=== PATIENT | male | born 1995 | race African-American/Black ===

== ENCOUNTER 2018-05-27 18:54 | Emergency (ER) | payer OTHER ==
[~2018-05-27] VITALS: Ht 170.2 cm; Wt 95.5 kg
[2018-05-27] MEDS ORDERED: ASPIRIN 81 MG CHEW TABLET PO ONE (19:45)
[2018-05-27 19:54] LABS: VENOUS BASE EXCESS 0.4 (-2.0-2.0); VENOUS HCO3 27.7 MEQ/L (23.0-27.0); VENOUS O2 SATURATION 73.4 % (60.0-80.0); VENOUS PARTIAL PRESSURE CO2 54.4 mmHg (38.0-50.0); VENOUS PARTIAL PRESSURE O2 40.6 mmHg (30.0-50.0); VENOUS PH 7.324 UNITS (7.330-7.430); VENOUS STANDARD HCO3 24.2 MEQ/L; VENOUS TOTAL CO2 29.3 MEQ/L (24.0-28.0)
[2018-05-27 19:58] LABS: BASO % 0.2 % (0.0-1.0); EOS # 0.1 10^3/uL (0.0-0.50); EOS % 1.9 % (0.0-3.0); HEMATOCRIT 46.3 % (42.0-52.0); HEMOGLOBIN 15.6 g/dl (13.5-17.5); LYMPH # 2.5 10^3/uL (1.5-6.5); MEAN CORPUSCULAR HEMOGLOBIN 29.2 pg (27.0-33.0); MEAN CORPUSCULAR HGB CONC 33.7 g/dl (32.0-36.5); MEAN CORPUSCULAR VOLUME 86.5 fl (80.0-96.0); MONO # 0.3 10^3/uL (0.0-0.8); MONO % 6.5 % (0.0-5.0); NEUTROPHILS # 1.8 10^3/uL (1.8-7.7); NEUTROPHILS % 38.2 % (36.0-66.0); PLATELET COUNT, AUTOMATED 269 10^3/uL (150-450); RED BLOOD COUNT 5.35 10^6/uL (4.30-6.10); WHITE BLOOD COUNT 4.8 10^3/uL (4.0-10.0)
--- NOTE | 2018-05-27 19:58 | REP ---
Clinical: Chest pain . Comparison: None . Technique: PA and lateral. Findings: The mediastinum and cardiac silhouette are normal. The lung weber without acute focal consolidation, effusion, or pneumothorax. The skeletal structures are intact and normal. Impression: 1. No focal consolidation. Electronically Signed by Collin Quintero MD 05/27/2018 07:50 P
[2018-05-27 20:59] LABS: ALBUMIN 3.7 GM/DL (3.2-5.2); ALT/SGPT 40 U/L (12-78); BILIRUBIN,DIRECT < 0.1 MG/DL (0.0-0.2); BILIRUBIN,TOTAL 0.4 MG/DL (0.2-1.0); BLOOD UREA NITROGEN 8 MG/DL (7-18); CALCIUM LEVEL 8.2 MG/DL (8.5-10.1); CARBON DIOXIDE LEVEL 28 MEQ/L (21-32); CHLORIDE LEVEL 106 MEQ/L (98-107); CPK CREATINE PHOSPHOKINASE 189 U/L (39-308); CREATININE FOR GFR 1.16 MG/DL (0.70-1.30); GLOMERULAR FILTRATION RATE > 60.0 (>60); GLUCOSE, FASTING 119 MG/DL (70-100); LIPASE 243 U/L (73-393); MB/CK RELATIVE INDEX 0.58 (< OR =4); NT-PRO BNP < 5 PG/ML (<125); SODIUM LEVEL 142 MEQ/L (136-145); TOTAL PROTEIN 7.2 GM/DL (6.4-8.2); TROPONIN I < 0.02 NG/ML (< 0.10)
[2018-05-27 21:45] VITALS: BP 137/73
--- NOTE | 2018-05-28 14:55 | ECGEPIP ---
Stationary ECG Study [facility] - ED Test Date: 2018-05-27 Pat Name: JUSTINE PALMER Department: Room: - Gender: M [employer]: : 1995 Requested By: MIKIE TELLEZ Order Number: [id number] Reading MD: Sandy Londono Measurements Intervals [place] Rate: 91 P: -23 MN: 139 QRS: 73 QRSD: 110 T: -54 QT: 351 QTc: 432 Interpretive Statements SINUS RHYTHM ST DEVIATION AND MODERATE T-WAVE ABNORMALITY, CONSIDER ISCHEMIA NO PRIOR FOR COMPARISON Electronically Signed On 05-28-2018 14:55:01 EST by Sandy Londono
== END 2018-05-27 22:02 | disposition home or self-care (01) ==
LOC: M ED 18:54
DX: R07.89 Other chest pain (principal); R06.02 Shortness of breath; F17.210 Nicotine dependence, cigarettes, uncomplicated

== ENCOUNTER 2019-05-16 20:56 | Emergency (ER) | payer OTHER ==
[~2019-05-16] VITALS: Ht 170.2 cm; Wt 102.7 kg
[2019-05-16] MEDS ORDERED: IBUPROFEN 800 MG TAB PO ONE (22:00)
[2019-05-16 23:56] VITALS: BP 136/70
--- NOTE | 2019-05-17 08:48 | REP ---
Left knee series: Five views. History: Left knee pain. Findings: Five views of the left knee demonstrate some clothing artifact over the distal thigh. Bones, joints, and soft tissues are otherwise unremarkable. No fracture or subluxation is seen. Impression: No acute abnormality. Electronically Signed by Jevon Araujo MD 05/17/2019 08:40 A
--- NOTE | 2019-05-17 08:48 | REP ---
Left tib-fib series: Four views. History: Tenderness to palpation. Findings: Four views of the left tibia and fibula demonstrate dystrophic soft-tissue calcifications in the pretibial soft tissues of the calf. No fracture or subluxation is seen. Otherwise unremarkable. Impression: Dystrophic soft-tissue calcifications. No fracture or other acute bony abnormality. Electronically Signed by Jevon Araujo MD 05/17/2019 08:40 A
== END 2019-05-17 00:34 | disposition home or self-care (01) ==
LOC: M ED 20:56
DX: M25.562 Pain in left knee (principal); W51.XXXA Accidental striking against or bumped into by another person, initial encounter; Y92.310 Basketball court as the place of occurrence of the external cause; Y93.67 Activity, basketball; Y99.9 Unspecified external cause status; F17.218 Nicotine dependence, cigarettes, with other nicotine-induced disorders; M79.605 Pain in left leg

== ENCOUNTER 2019-09-08 21:33 | Emergency (ER) | payer OTHER ==
[~2019-09-08] VITALS: Ht 167.6 cm; Wt 125.0 kg
[2019-09-08 21:34] VITALS: BP 148/85
[2019-09-08] MEDS ORDERED: HYDR1CRE93 TOP (22:07)
[2019-09-08] MEDS ORDERED: diphenhydrAMINE 50MG CAP PO ONE (22:15)
[2019-09-08] MEDS ORDERED: HYDROCORTISONE 1% CREAM 30 GM TOP ONE (22:15)
== END 2019-09-08 22:23 | disposition home or self-care (01) ==
LOC: M ED 21:33
DX: L50.9 Urticaria, unspecified (principal)

== ENCOUNTER 2019-11-24 00:50 | Emergency (ER) | payer OTHER ==
[~2019-11-24] VITALS: Ht 170.2 cm; Wt 100.0 kg
[~2019-11-24 00:50] MED LIST: HYDR1CRE93 TOP
[2019-11-24 02:37] VITALS: BP 139/74
--- NOTE | 2019-11-24 08:24 | REP ---
Left knee series: Five views. History: Injury in a fall. Comparison radiographs May 16, 2019. Findings: Five views of the left knee demonstrate normal bones, joints and soft tissues. No fracture or subluxation is seen. Impression: Negative left knee radiographs. No fracture seen. Electronically Signed by Jevon Araujo MD 11/24/2019 08:16 A
== END 2019-11-24 02:38 | disposition home or self-care (01) ==
LOC: M ED 00:50
DX: M25.562 Pain in left knee (principal); F17.210 Nicotine dependence, cigarettes, uncomplicated